=== PATIENT | male | born 1970 | race Caucasian/White ===

== ENCOUNTER 2017-05-13 17:33 | Emergency (ER) | payer BC ==
[~2017-05-13] VITALS: Ht 182.9 cm; Wt 77.1 kg
[2017-05-13] MEDS ORDERED: TRAMADOL 50 MG50 MG PO (18:11)
[2017-05-13] MEDS ORDERED: MIGRAINE RELIE1 EACH PO (18:11)
[2017-05-13 18:23] LABS: CALCIUM 9.7 mg/dL (8.5-10.1); CREATININE 1.1 mg/dL (0.7-1.3); MAGNESIUM 2.1 mg/dL (1.8-2.4); POTASSIUM 3.9 mmol/L (3.5-5.1)
== END 2017-05-13 19:48 | disposition home or self-care (01) ==
LOC: ER 17:33
PROVIDERS: Physician Assistant
DX: G43.909 Migraine, unspecified, not intractable, without status migrainosus (principal); Z88.8 Allergy status to other drugs, medicaments and biological substances

== ENCOUNTER 2018-01-09 15:26 | Emergency (ER) | payer BC ==
[~2018-01-09] VITALS: Ht 182.9 cm; Wt 79.4 kg
[~2018-01-09 15:26] MED LIST: MIGRAINE RELIE1 EACH PO; TRAMADOL 50 MG50 MG PO
[2018-01-09] MEDS ORDERED: PROMS25 WY RECTAL (17:04)
[2018-01-09 17:10] VITALS: BP 170/93
== END 2018-01-09 17:10 | disposition home or self-care (01) ==
LOC: ER 15:26
DX: G43.909 Migraine, unspecified, not intractable, without status migrainosus (principal); Z88.8 Allergy status to other drugs, medicaments and biological substances; Z90.89 Acquired absence of other organs

== ENCOUNTER 2018-02-16 20:39 | Emergency (ER) | payer BC ==
[~2018-02-16] VITALS: Ht 185.4 cm; Wt 79.4 kg
[~2018-02-16 20:39] MED LIST changes: +PROMS25 WY RECTAL
[2018-02-16 22:53] VITALS: BP 139/88
== END 2018-02-16 22:53 | disposition home or self-care (01) ==
LOC: ER 20:39
DX: G43.909 Migraine, unspecified, not intractable, without status migrainosus (principal); E86.0 Dehydration; Z88.8 Allergy status to other drugs, medicaments and biological substances

== ENCOUNTER 2019-09-13 05:15 | Emergency (ER) | payer OTHER ==
[~2019-09-13] VITALS: Ht 185.4 cm; Wt 86.2 kg
[2019-09-13] MEDS ORDERED: MECLIZINE HCL25 M1 PO (05:23)
[2019-09-13] MEDS ORDERED: ONDANSETRON ODT8 MG PO (07:03)
[2019-09-13 07:07] VITALS: BP 142/87
== END 2019-09-13 07:11 | disposition home or self-care (01) ==
LOC: ER 05:15
DX: G43.909 Migraine, unspecified, not intractable, without status migrainosus (principal); R11.2 Nausea with vomiting, unspecified; R09.81 Nasal congestion; Z90.89 Acquired absence of other organs; Z79.899 Other long term (current) drug therapy; Z79.82 Long term (current) use of aspirin; Z88.8 Allergy status to other drugs, medicaments and biological substances

== ENCOUNTER 2020-07-27 15:03 | Emergency (ER) | payer OTHER ==
[~2020-07-27] VITALS: Ht 185.4 cm; Wt 83.9 kg
[~2020-07-27 15:03] MED LIST changes: +MECLIZINE HCL25 M1 PO; +ONDANSETRON ODT8 MG PO
[2020-07-27] MEDS ORDERED: [UNRECOGNIZED DRUG - OTHER] PO (15:14)
[2020-07-27 19:37] LABS: ABSOLUTE NEUTROPHILS 8.7 thou/uL (1.4-8.2); BASOPHILS 0.2 % (0.0-2.0); EOSINOPHILS 0.1 % (0.0-3.0); HEMATOCRIT 44.2 % (42.0-52.0); HEMOGLOBIN 15.2 gm/dL (14.0-18.0); LYMPHOCYTES 5.6 % (24.0-44.0); MCHC 34.4 g/dL (28.0-37.0); MCV 84.4 fL (80.0-100.0); MONOCYTES 1.2 % (1.0-8.0); PLATELET COUNT 212 thou/uL (150-400); POLYS 92.9 % (36.0-66.0); RBC 5.24 mil/uL (4.50-6.00); RDW 13.5 % (10.5-14.5); WBC 9.4 thou/uL (4.0-11.0)
[2020-07-27 19:42] LABS: CALCIUM 8.2 mg/dL (8.5-10.1); POTASSIUM 3.7 mmol/L (3.5-5.1)
[2020-07-27 19:49] LABS: ALBUMIN 3.9 g/dL (3.4-5.0)
[2020-07-27 20:15] VITALS: BP 143/51
== END 2020-07-27 20:15 | disposition home or self-care (01) ==
LOC: ER 15:03
PROVIDERS: Physician Assistant
DX: G43.909 Migraine, unspecified, not intractable, without status migrainosus (principal); Z90.89 Acquired absence of other organs; Z88.8 Allergy status to other drugs, medicaments and biological substances